=== PATIENT | female | born 1935 | race Caucasian/White ===

== ENCOUNTER 2021-03-06 11:16 | Inpatient (IN) ==
[2021-03-06 12:10] LABS: Basophils # 0.1 K/mcL (0.0-0.2); Basophils % 0.8 %; Eosinophils # 0.2 K/mcL (0.0-0.6); Eosinophils % 2.1 %; Hematocrit 32.4 % (35.3-44.9); Hemoglobin 10.4 g/dL (11.5-15.4); Immature Granulocytes % 0.7 % (0-4); Lymphocytes # 1.2 K/mcL (0.6-4.6); Lymphocytes % 15.4 %; Mean Corpuscular HGB Conc 32.1 g/dL (31.6-35.5); Mean Corpuscular Hemoglobin 29.9 pg (28.0-33.3); Mean Corpuscular Volume 93.1 fL (83.0-100.0); Mean Platelet Volume 9.2 fL (9.4-12.4); Monocytes # 0.5 K/mcL (0.0-1.3); Monocytes % 6.7 %; Neutrophils # 5.7 K/mcL (1.6-8.9); Platelet Count 226 K/mcL (140-400); Red Blood Count 3.48 M/mcL (3.82-4.97); Red Cell Distribution Width 15.5 % (11.5-14.5); Segmented Neutrophils % 74.3 %; White Blood Count 7.6 K/mcL (4.3-11.1)
[2021-03-06 12:28] LABS: Albumin 4.1 g/dL (3.5-5.7); Albumin/Globulin Ratio 1.4 (1.1-2.2); Bilirubin,Total 0.5 mg/dL (0.3-1.0); Calcium 9.5 mg/dL (8.6-10.3); Globulin 2.9 g/dL (2.4-3.5); Potassium 4.5 mEq/L (3.5-5.1)
[2021-03-06 12:41] LABS: Bilirubin,Urine Negative (Negative); Blood,Urine Negative (Negative); Clarity,Urine Clear (Clear); Color,Urine Yellow (Yellow); Glucose,Urine (UA) Normal (Normal); Ketones,Urine Negative (Negative); Leukocyte Esterase,Urine Negative (Negative); Nitrite,Urine Negative (Negative); Protein,Urine Negative (Neg-Trace); Specific Gravity,Urine 1.015 (1.010-1.025); Urobilinogen,Urine Normal (Normal)
[2021-03-06] MEDS ORDERED: Clindamycin 600 MG/50 ML 600 MG/50 ML IV.SOLN IVPB ONE (13:23)
[2021-03-06] MEDS ORDERED: Acetaminophen 325 MG TABLET PO PRN (13:49)
[2021-03-06] MEDS ORDERED: Ondansetron ODT 4 MG TAB.RAPDIS SL PRN (13:49)
[2021-03-06] MEDS ORDERED: Naloxone 0.4 MG/ML INJ IVP PRN (13:49)
[2021-03-06] MEDS ORDERED: D5% in Water 1,000 ML IVC PRN (17:47)
[2021-03-06] MEDS ORDERED: Dextrose Gel 15 GM/37.5 ML TUBE PO PRN ×2 (17:47)
[2021-03-06] MEDS ORDERED: *HR* Dextrose 50 % in Water (Vial) 50 ML VIAL IVP PRN (17:47)
[2021-03-06] MEDS: Morphine Sulfate ER (12 HR) 15 MG TABLET.ER PO PRN (20:45)
[2021-03-06] MEDS: Torsemide 20 MG TABLET PO SCH ×2 (20:45→21:57)
[2021-03-06] MEDS: Magnesium Oxide 400 MG TABLET PO SCH (20:46)
[2021-03-06] MEDS: Insulin LISPRO 300 UNITS/3 ML VIAL SUBQ SCH (20:54)
[2021-03-06] MEDS: Clindamycin 600 MG/50 ML 600 MG/50 ML IV.SOLN IVPB SCH (23:55)
[2021-03-07 06:04] LABS: Basophils # 0.1 K/mcL (0.0-0.2); Basophils % 0.8 %; Eosinophils # 0.1 K/mcL (0.0-0.6); Eosinophils % 1.8 %; Hematocrit 28.6 % (35.3-44.9); Hemoglobin 9.2 g/dL (11.5-15.4); Immature Granulocytes % 0.5 % (0-4); Lymphocytes # 1.5 K/mcL (0.6-4.6); Lymphocytes % 24.3 %; Mean Corpuscular HGB Conc 32.2 g/dL (31.6-35.5); Mean Corpuscular Hemoglobin 30.1 pg (28.0-33.3); Mean Corpuscular Volume 93.5 fL (83.0-100.0); Mean Platelet Volume 9.6 fL (9.4-12.4); Monocytes # 0.5 K/mcL (0.0-1.3); Monocytes % 8.7 %; Neutrophils # 3.9 K/mcL (1.6-8.9); Platelet Count 186 K/mcL (140-400); Red Blood Count 3.06 M/mcL (3.82-4.97); Red Cell Distribution Width 15.4 % (11.5-14.5); Segmented Neutrophils % 63.9 %; White Blood Count 6.1 K/mcL (4.3-11.1)
[2021-03-07 06:35] LABS: Calcium 8.8 mg/dL (8.6-10.3); Potassium 3.8 mEq/L (3.5-5.1)
[2021-03-07] MEDS ORDERED: *HR* Rivaroxaban 10 MG TABLET PO SCH (09:00)
[2021-03-07] MEDS: Insulin LISPRO 300 UNITS/3 ML VIAL SUBQ SCH ×4 (09:02→22:45)
[2021-03-07] MEDS: Clindamycin 600 MG/50 ML 600 MG/50 ML IV.SOLN IVPB SCH ×2 (09:02→16:06)
[2021-03-07] MEDS: GlipiZIDE 5 MG TABLET PO SCH ×2 (09:03→16:06)
[2021-03-07] MEDS: Torsemide 20 MG TABLET PO SCH (09:03)
[2021-03-07] MEDS: Magnesium Oxide 400 MG TABLET PO SCH ×2 (09:03→22:44)
[2021-03-07] MEDS: Loratadine 10 MG TABLET PO SCH (09:03)
[2021-03-07] MEDS: Metoprolol XL (24 HR) Succ 50 MG TAB.ER.24H PO SCH (09:04)
[2021-03-07] MEDS: Spironolactone 25 MG TABLET PO SCH (09:04)
[2021-03-07] MEDS: *HR* Digoxin 0.125 MG TABLET PO SCH (09:04)
[2021-03-07] MEDS: (Mirabegron [Myrbetriq] 50 MG Tab.Er.24h) PO SCH (09:11)
[2021-03-07] MEDS: Morphine Sulfate ER (12 HR) 15 MG TABLET.ER PO PRN (22:44)
[2021-03-08] MEDS: Levalbuterol 1 PUFF INHALER IH PRN ×3 (00:13→22:27)
[2021-03-08] MEDS: Clindamycin 600 MG/50 ML 600 MG/50 ML IV.SOLN IVPB SCH ×3 (00:18→16:01)
[2021-03-08] MEDS: Insulin LISPRO 300 UNITS/3 ML VIAL SUBQ SCH ×4 (08:11→20:12)
[2021-03-08] MEDS: Metoprolol XL (24 HR) Succ 50 MG TAB.ER.24H PO SCH (09:45)
[2021-03-08] MEDS: (Mirabegron [Myrbetriq] 50 MG Tab.Er.24h) PO SCH (09:45)
[2021-03-08] MEDS: Magnesium Oxide 400 MG TABLET PO SCH ×2 (09:45→20:11)
[2021-03-08] MEDS: Loratadine 10 MG TABLET PO SCH (09:45)
[2021-03-08] MEDS: Spironolactone 25 MG TABLET PO SCH (09:45)
[2021-03-08] MEDS: *HR* Rivaroxaban 15 MG TABLET PO SCH (09:45)
[2021-03-08] MEDS: Torsemide 20 MG TABLET PO SCH ×2 (09:45→17:18)
[2021-03-08] MEDS: GlipiZIDE 5 MG TABLET PO SCH ×2 (09:45→16:01)
[2021-03-08 10:51] LABS: Basophils % 0.4 %; Eosinophils # 0.1 K/mcL (0.0-0.6); Eosinophils % 0.8 %; Hematocrit 32.2 % (35.3-44.9); Hemoglobin 10.3 g/dL (11.5-15.4); Immature Granulocytes % 0.6 % (0-4); Lymphocytes # 0.9 K/mcL (0.6-4.6); Lymphocytes % 10.2 %; Mean Corpuscular Hemoglobin 29.9 pg (28.0-33.3); Mean Corpuscular Volume 93.3 fL (83.0-100.0); Mean Platelet Volume 9.6 fL (9.4-12.4); Monocytes # 0.5 K/mcL (0.0-1.3); Platelet Count 238 K/mcL (140-400); Red Blood Count 3.45 M/mcL (3.82-4.97); Red Cell Distribution Width 15.2 % (11.5-14.5); White Blood Count 8.6 K/mcL (4.3-11.1)
[2021-03-08 11:09] LABS: Calcium 9.2 mg/dL (8.6-10.3); Potassium 3.4 mEq/L (3.5-5.1)
[2021-03-08] MEDS: Morphine Sulfate ER (12 HR) 15 MG TABLET.ER PO PRN (20:11)
[2021-03-09] MEDS: Clindamycin 600 MG/50 ML 600 MG/50 ML IV.SOLN IVPB SCH ×4 (00:01→23:37)
[2021-03-09] MEDS: Insulin LISPRO 300 UNITS/3 ML VIAL SUBQ SCH ×4 (08:05→20:59)
[2021-03-09 08:15] LABS: Basophils # 0.1 K/mcL (0.0-0.2); Basophils % 0.6 %; Eosinophils # 0.1 K/mcL (0.0-0.6); Eosinophils % 1.8 %; Hematocrit 31.5 % (35.3-44.9); Hemoglobin 10.2 g/dL (11.5-15.4); Immature Granulocytes % 0.6 % (0-4); Lymphocytes # 1.2 K/mcL (0.6-4.6); Lymphocytes % 15.7 %; Mean Corpuscular HGB Conc 32.4 g/dL (31.6-35.5); Mean Corpuscular Volume 92.6 fL (83.0-100.0); Mean Platelet Volume 9.7 fL (9.4-12.4); Monocytes # 0.5 K/mcL (0.0-1.3); Monocytes % 6.9 %; Neutrophils # 5.8 K/mcL (1.6-8.9); Platelet Count 222 K/mcL (140-400); Red Cell Distribution Width 15.2 % (11.5-14.5); Segmented Neutrophils % 74.4 %; White Blood Count 7.8 K/mcL (4.3-11.1)
[2021-03-09] MEDS: Magnesium Oxide 400 MG TABLET PO SCH ×2 (08:38→20:54)
[2021-03-09] MEDS: *HR* Digoxin 0.125 MG TABLET PO SCH (08:38)
[2021-03-09] MEDS: GlipiZIDE 5 MG TABLET PO SCH ×2 (08:38→17:59)
[2021-03-09] MEDS: Loratadine 10 MG TABLET PO SCH (08:38)
[2021-03-09] MEDS: *HR* Rivaroxaban 15 MG TABLET PO SCH (08:38)
[2021-03-09] MEDS: (Mirabegron [Myrbetriq] 50 MG Tab.Er.24h) PO SCH (08:39)
[2021-03-09] MEDS: Spironolactone 25 MG TABLET PO SCH (08:39)
[2021-03-09] MEDS: Metoprolol XL (24 HR) Succ 50 MG TAB.ER.24H PO SCH (08:39)
[2021-03-09] MEDS: Torsemide 20 MG TABLET PO SCH ×2 (08:41→18:00)
[2021-03-09 08:59] LABS: Calcium 9.1 mg/dL (8.6-10.3); Potassium 3.7 mEq/L (3.5-5.1)
[2021-03-09] MEDS: Morphine Sulfate ER (12 HR) 15 MG TABLET.ER PO PRN ×2 (10:27→23:37)
[2021-03-10] MEDS ORDERED: polyethylene glycoL 3350 17 GM POWD.PACK PO PRN (00:15)
[2021-03-10 07:53] VITALS: BP 104/67; PULSE 79; RESP 18; TEMP 98.3; O2SAT 94
[2021-03-10] MEDS: Insulin LISPRO 300 UNITS/3 ML VIAL SUBQ SCH ×2 (08:06→12:40)
[2021-03-10 08:23] LABS: Basophils % 0.6 %; Eosinophils # 0.2 K/mcL (0.0-0.6); Eosinophils % 2.6 %; Hematocrit 29.9 % (35.3-44.9); Hemoglobin 9.5 g/dL (11.5-15.4); Immature Granulocytes % 0.9 % (0-4); Lymphocytes # 1.2 K/mcL (0.6-4.6); Lymphocytes % 17.5 %; Mean Corpuscular HGB Conc 31.8 g/dL (31.6-35.5); Mean Corpuscular Hemoglobin 29.8 pg (28.0-33.3); Mean Corpuscular Volume 93.7 fL (83.0-100.0); Mean Platelet Volume 9.3 fL (9.4-12.4); Monocytes # 0.5 K/mcL (0.0-1.3); Monocytes % 7.7 %; Neutrophils # 4.7 K/mcL (1.6-8.9); Platelet Count 201 K/mcL (140-400); Red Blood Count 3.19 M/mcL (3.82-4.97); Red Cell Distribution Width 14.9 % (11.5-14.5); Segmented Neutrophils % 70.7 %; White Blood Count 6.6 K/mcL (4.3-11.1)
[2021-03-10] MEDS: Torsemide 20 MG TABLET PO SCH (08:38)
[2021-03-10] MEDS: GlipiZIDE 5 MG TABLET PO SCH (08:38)
[2021-03-10] MEDS: Magnesium Oxide 400 MG TABLET PO SCH (08:38)
[2021-03-10] MEDS: Spironolactone 25 MG TABLET PO SCH (08:39)
[2021-03-10] MEDS: Clindamycin 600 MG/50 ML 600 MG/50 ML IV.SOLN IVPB SCH (08:39)
[2021-03-10] MEDS: *HR* Rivaroxaban 15 MG TABLET PO SCH (08:39)
[2021-03-10] MEDS: Loratadine 10 MG TABLET PO SCH (08:39)
[2021-03-10] MEDS: Metoprolol XL (24 HR) Succ 50 MG TAB.ER.24H PO SCH (08:39)
[2021-03-10] MEDS: (Mirabegron [Myrbetriq] 50 MG Tab.Er.24h) PO SCH (08:40)
[2021-03-10 09:01] LABS: Calcium 8.6 mg/dL (8.6-10.3); Potassium 3.6 mEq/L (3.5-5.1)
== END 2021-03-10 13:40 | disposition other institution (70) | DRG 638 ==
LOC: EMEROOPIK 11:16 → INPPIK 11:16
PROVIDERS: ADMIT Family Medicine; ATTEND Family Medicine

== ENCOUNTER 2021-03-09 08:20 | Inpatient (IN) ==
[2021-03-10] MEDS ORDERED: Morphine Sulfate ER (12 HR) 15 MG TABLET.ER PO PRN (13:03)
[2021-03-10] MEDS ORDERED: Levalbuterol 1 PUFF INHALER IH PRN (13:03)
[2021-03-10] MEDS ORDERED: D5% in Water 1,000 ML IVC PRN (13:08)
[2021-03-10] MEDS ORDERED: Dextrose Gel 15 GM/37.5 ML TUBE PO PRN ×2 (13:08)
[2021-03-10] MEDS ORDERED: *HR* Dextrose 50 % in Water (Vial) 50 ML VIAL IVP PRN (13:08)
[2021-03-10] MEDS ORDERED: Acetaminophen 325 MG TABLET PO PRN (13:11)
[2021-03-10] MEDS ORDERED: Ondansetron ODT 4 MG TAB.RAPDIS SL PRN (13:12)
[2021-03-10] MEDS: *HR* Digoxin 0.125 MG TABLET PO SCH (14:57)
[2021-03-10] MEDS: Torsemide 20 MG TABLET PO SCH (16:41)
[2021-03-10] MEDS: Insulin LISPRO 300 UNITS/3 ML VIAL SUBQ SCH ×2 (16:42→20:44)
[2021-03-10] MEDS: GlipiZIDE 5 MG TABLET PO SCH (20:42)
[2021-03-10] MEDS: Magnesium Oxide 400 MG TABLET PO SCH (20:43)
[2021-03-11 07:28] LABS: Basophils # 0.1 K/mcL (0.0-0.2); Basophils % 0.9 %; Eosinophils # 0.2 K/mcL (0.0-0.6); Eosinophils % 3.4 %; Hematocrit 29.8 % (35.3-44.9); Hemoglobin 9.5 g/dL (11.5-15.4); Immature Granulocytes % 0.7 % (0-4); Lymphocytes # 1.3 K/mcL (0.6-4.6); Lymphocytes % 21.6 %; Mean Corpuscular HGB Conc 31.9 g/dL (31.6-35.5); Mean Corpuscular Hemoglobin 29.6 pg (28.0-33.3); Mean Corpuscular Volume 92.8 fL (83.0-100.0); Mean Platelet Volume 9.6 fL (9.4-12.4); Monocytes # 0.5 K/mcL (0.0-1.3); Monocytes % 9.1 %; Neutrophils # 3.7 K/mcL (1.6-8.9); Platelet Count 205 K/mcL (140-400); Red Blood Count 3.21 M/mcL (3.82-4.97); Red Cell Distribution Width 14.7 % (11.5-14.5); Segmented Neutrophils % 64.3 %; White Blood Count 5.8 K/mcL (4.3-11.1)
[2021-03-11 07:49] LABS: Calcium 8.8 mg/dL (8.6-10.3); Potassium 3.5 mEq/L (3.5-5.1)
[2021-03-11] MEDS ORDERED: *HR* Rivaroxaban 10 MG TABLET PO SCH (09:00)
[2021-03-11] MEDS: Insulin LISPRO 300 UNITS/3 ML VIAL SUBQ SCH ×4 (09:08→21:04)
[2021-03-11] MEDS: Multivit/Ca/Min/Fe/FA 1 TAB TABLET PO SCH (09:09)
[2021-03-11] MEDS: Lactobacillus 1 EACH CAP.SPRINK PO SCH ×2 (09:09→21:02)
[2021-03-11] MEDS: GlipiZIDE 5 MG TABLET PO SCH ×2 (09:09→16:42)
[2021-03-11] MEDS: Loratadine 10 MG TABLET PO SCH (09:09)
[2021-03-11] MEDS: Cholecalciferol (D-3) 1,000 UNIT (25MCG) TABLET PO SCH (09:09)
[2021-03-11] MEDS: Metoprolol XL (24 HR) Succ 50 MG TAB.ER.24H PO SCH (09:10)
[2021-03-11] MEDS: Spironolactone 25 MG TABLET PO SCH (09:10)
[2021-03-11] MEDS: Torsemide 20 MG TABLET PO SCH ×2 (09:10→16:42)
[2021-03-11] MEDS: Magnesium Oxide 400 MG TABLET PO SCH ×2 (09:10→21:03)
[2021-03-11] MEDS: (Mirabegron [Myrbetriq] 50 MG Tab.Er.24h) PO SCH (09:11)
[2021-03-11] MEDS ORDERED: Morphine Sulfate ER (12 HR) 15 MG TABLET.ER PO SCH (14:00)
[2021-03-11] MEDS ORDERED: Morphine Sulfate ER (12 HR) 15 MG TABLET.ER PO ONE (19:00)
[2021-03-12] MEDS: Spironolactone 25 MG TABLET PO SCH (10:01)
[2021-03-12] MEDS: Torsemide 20 MG TABLET PO SCH ×2 (10:02→17:18)
[2021-03-12] MEDS: Loratadine 10 MG TABLET PO SCH (10:02)
[2021-03-12] MEDS: Magnesium Oxide 400 MG TABLET PO SCH ×2 (10:02→21:26)
[2021-03-12] MEDS: Multivit/Ca/Min/Fe/FA 1 TAB TABLET PO SCH (10:02)
[2021-03-12] MEDS: Insulin LISPRO 300 UNITS/3 ML VIAL SUBQ SCH ×4 (10:03→21:26)
[2021-03-12] MEDS: (Mirabegron [Myrbetriq] 50 MG Tab.Er.24h) PO SCH (10:03)
[2021-03-12] MEDS: Metoprolol XL (24 HR) Succ 50 MG TAB.ER.24H PO SCH (10:03)
[2021-03-12] MEDS: *HR* Rivaroxaban 15 MG TABLET PO SCH (10:03)
[2021-03-12] MEDS: Cholecalciferol (D-3) 1,000 UNIT (25MCG) TABLET PO SCH (10:03)
[2021-03-12] MEDS: Morphine Sulfate ER (12 HR) 15 MG TABLET.ER PO SCH ×2 (10:03→21:25)
[2021-03-12] MEDS: Lactobacillus 1 EACH CAP.SPRINK PO SCH ×2 (10:03→21:26)
[2021-03-12] MEDS: GlipiZIDE 5 MG TABLET PO SCH ×2 (10:03→17:18)
[2021-03-12] MEDS: *HR* Digoxin 0.125 MG TABLET PO SCH (15:03)
[2021-03-13] MEDS: Insulin LISPRO 300 UNITS/3 ML VIAL SUBQ SCH ×4 (07:58→21:16)
[2021-03-13] MEDS: Lactobacillus 1 EACH CAP.SPRINK PO SCH ×2 (08:20→21:16)
[2021-03-13] MEDS: Spironolactone 25 MG TABLET PO SCH (08:20)
[2021-03-13] MEDS: Magnesium Oxide 400 MG TABLET PO SCH ×2 (08:20→21:16)
[2021-03-13] MEDS: Multivit/Ca/Min/Fe/FA 1 TAB TABLET PO SCH (08:20)
[2021-03-13] MEDS: Torsemide 20 MG TABLET PO SCH ×2 (08:21→16:47)
[2021-03-13] MEDS: *HR* Rivaroxaban 15 MG TABLET PO SCH (08:21)
[2021-03-13] MEDS: Metoprolol XL (24 HR) Succ 50 MG TAB.ER.24H PO SCH (08:21)
[2021-03-13] MEDS: Morphine Sulfate ER (12 HR) 15 MG TABLET.ER PO SCH ×2 (08:21→21:15)
[2021-03-13] MEDS: Loratadine 10 MG TABLET PO SCH (08:21)
[2021-03-13] MEDS: Cholecalciferol (D-3) 1,000 UNIT (25MCG) TABLET PO SCH (08:21)
[2021-03-13] MEDS: (Mirabegron [Myrbetriq] 50 MG Tab.Er.24h) PO SCH (08:21)
[2021-03-13] MEDS: GlipiZIDE 5 MG TABLET PO SCH ×2 (08:21→16:46)
[2021-03-14] MEDS: Torsemide 20 MG TABLET PO SCH (06:47)
[2021-03-14 07:13] VITALS: RESP 18
[2021-03-14] MEDS: Insulin LISPRO 300 UNITS/3 ML VIAL SUBQ SCH ×4 (08:37→20:34)
[2021-03-14] MEDS: Cholecalciferol (D-3) 1,000 UNIT (25MCG) TABLET PO SCH (08:43)
[2021-03-14] MEDS: Lactobacillus 1 EACH CAP.SPRINK PO SCH ×2 (08:43→20:34)
[2021-03-14] MEDS: Metoprolol XL (24 HR) Succ 50 MG TAB.ER.24H PO SCH (08:43)
[2021-03-14] MEDS: Loratadine 10 MG TABLET PO SCH (08:43)
[2021-03-14] MEDS: *HR* Rivaroxaban 15 MG TABLET PO SCH (08:43)
[2021-03-14] MEDS: Multivit/Ca/Min/Fe/FA 1 TAB TABLET PO SCH (08:44)
[2021-03-14] MEDS: GlipiZIDE 5 MG TABLET PO SCH ×2 (08:44→16:17)
[2021-03-14] MEDS: Spironolactone 25 MG TABLET PO SCH (08:44)
[2021-03-14] MEDS: Morphine Sulfate ER (12 HR) 15 MG TABLET.ER PO SCH ×2 (08:44→20:34)
[2021-03-14] MEDS: Magnesium Oxide 400 MG TABLET PO SCH ×2 (08:44→20:34)
[2021-03-14] MEDS: (Mirabegron [Myrbetriq] 50 MG Tab.Er.24h) PO SCH (08:44)
[2021-03-14] MEDS: *HR* Digoxin 0.125 MG TABLET PO SCH (13:42)
[2021-03-14] MEDS ORDERED: Torsemide 20 MG TABLET PO SCH (14:00)
[2021-03-14 19:28] VITALS: O2SAT 91
[2021-03-15] MEDS: Torsemide 20 MG TABLET PO SCH (06:16)
[2021-03-15 07:31] VITALS: BP 111/55; PULSE 70; TEMP 97.9
[2021-03-15] MEDS: Insulin LISPRO 300 UNITS/3 ML VIAL SUBQ SCH (07:34)
[2021-03-15] MEDS: Spironolactone 25 MG TABLET PO SCH (08:42)
[2021-03-15] MEDS: Multivit/Ca/Min/Fe/FA 1 TAB TABLET PO SCH (08:42)
[2021-03-15] MEDS: Metoprolol XL (24 HR) Succ 50 MG TAB.ER.24H PO SCH (08:43)
[2021-03-15] MEDS: Lactobacillus 1 EACH CAP.SPRINK PO SCH (08:43)
[2021-03-15] MEDS: Cholecalciferol (D-3) 1,000 UNIT (25MCG) TABLET PO SCH (08:43)
[2021-03-15] MEDS: GlipiZIDE 5 MG TABLET PO SCH (08:44)
[2021-03-15] MEDS: Loratadine 10 MG TABLET PO SCH (08:44)
[2021-03-15] MEDS: Magnesium Oxide 400 MG TABLET PO SCH (08:44)
[2021-03-15] MEDS: *HR* Rivaroxaban 15 MG TABLET PO SCH (08:44)
[2021-03-15] MEDS: (Mirabegron [Myrbetriq] 50 MG Tab.Er.24h) PO SCH (08:44)
[2021-03-15] MEDS: Morphine Sulfate ER (12 HR) 15 MG TABLET.ER PO SCH (08:44)
== END 2021-03-15 10:37 | disposition home health service (06) | DRG 638 ==
LOC: INPPIK 03-10 13:53
PROVIDERS: ADMIT Family Medicine; ATTEND Family Medicine

== ENCOUNTER 2021-09-24 15:51 | Inpatient (IN) ==
[2021-09-24 17:14] LABS: Basophils % 0.8 %; Eosinophils # 0.1 K/mcL (0.0-0.6); Eosinophils % 1.9 %; Hematocrit 27.2 % (35.3-44.9); Hemoglobin 8.3 g/dL (11.5-15.4); Immature Granulocytes % 0.6 % (0-4); Lymphocytes # 0.9 K/mcL (0.6-4.6); Lymphocytes % 16.2 %; Mean Corpuscular HGB Conc 30.5 g/dL (31.6-35.5); Mean Corpuscular Volume 98.2 fL (83.0-100.0); Mean Platelet Volume 9.8 fL (9.4-12.4); Monocytes # 0.4 K/mcL (0.0-1.3); Monocytes % 6.8 %; Neutrophils # 3.9 K/mcL (1.6-8.9); Platelet Count 232 K/mcL (140-400); Red Blood Count 2.77 M/mcL (3.82-4.97); Red Cell Distribution Width 14.7 % (11.5-14.5); Segmented Neutrophils % 73.7 %; White Blood Count 5.3 K/mcL (4.3-11.1)
[2021-09-24 17:21] LABS: Prothrombin Time 22.2 Seconds (9.4-12.1)
[2021-09-24 17:24] LABS: Activated Partial Thrombo Time 39.1 Seconds (26.0-36.0)
[2021-09-24 17:33] LABS: Calcium 8.8 mg/dL (8.6-10.3)
[2021-09-24 18:13] LABS: Bilirubin,Urine Negative (Negative); Blood,Urine Trace-intact (Negative); Clarity,Urine Slightly Cloudy (Clear); Color,Urine Yellow (Yellow); Glucose,Urine (UA) Normal (Normal); Ketones,Urine Negative (Negative); Leukocyte Esterase,Urine Small (Negative); Nitrite,Urine Positive (Negative); Protein,Urine Negative (Neg-Trace); Specific Gravity,Urine 1.015 (1.010-1.025); Urobilinogen,Urine Normal (Normal)
[2021-09-24 18:23] LABS: Bacteria,Urine Many per hpf (None-Few); RBC,Urine 0-3 per hpf (0-3); Squamous Epithelial Cell,Urine Few per hpf (None-Few); WBC,Urine 15-30 per hpf (0-3)
[2021-09-24] MEDS ORDERED: Morphine Sulfate ER (12 HR) 15 MG TABLET.ER PO PRN ×2 (19:06→23:17)
[2021-09-24] MEDS ORDERED: Vancomycin 500 MG in 0.9 % Sodium Chloride Mini Bag 100 ML IVPB ONE (20:19)
[2021-09-24] MEDS ORDERED: *HR* OxyCODONE Immed Rel 5 MG TABLET PO PRN (22:40)
[2021-09-24] MEDS ORDERED: *HR* HYDROcodone/Acet 5/325 mg TABLET PO PRN (22:40)
[2021-09-24] MEDS ORDERED: Melatonin 3 MG TABLET PO PRN (22:40)
[2021-09-24] MEDS ORDERED: Naloxone 0.4 MG/ML INJ IVP PRN ×2 (22:40→23:17)
[2021-09-24] MEDS ORDERED: Acetaminophen 325 MG TABLET PO PRN ×2 (22:40→23:17)
[2021-09-24] MEDS ORDERED: Ondansetron 4 MG/2 ML VIAL IVP PRN ×2 (22:40→23:17)
[2021-09-24] MEDS ORDERED: GlipiZIDE 5 MG TABLET PO SCH (23:17)
[2021-09-24] MEDS ORDERED: Levalbuterol 1 PUFF INHALER IH PRN (23:17)
[2021-09-25] MEDS: *HR* Digoxin 0.125 MG TABLET PO SCH (01:07)
[2021-09-25] MEDS: *HR* HYDROcodone/Acet 5/325 mg TABLET PO PRN ×2 (01:08→09:13)
[2021-09-25 05:02] LABS: Basophils % 0.8 %; Eosinophils # 0.1 K/mcL (0.0-0.6); Eosinophils % 1.5 %; Hematocrit 25.9 % (35.3-44.9); Hemoglobin 7.9 g/dL (11.5-15.4); Immature Granulocytes % 0.4 % (0-4); Lymphocytes # 1.1 K/mcL (0.6-4.6); Lymphocytes % 21.6 %; Mean Corpuscular HGB Conc 30.5 g/dL (31.6-35.5); Mean Corpuscular Hemoglobin 30.4 pg (28.0-33.3); Mean Corpuscular Volume 99.6 fL (83.0-100.0); Mean Platelet Volume 10.7 fL (9.4-12.4); Monocytes # 0.5 K/mcL (0.0-1.3); Monocytes % 9.1 %; Neutrophils # 3.5 K/mcL (1.6-8.9); Platelet Count 197 K/mcL (140-400); Red Cell Distribution Width 14.6 % (11.5-14.5); Segmented Neutrophils % 66.6 %; White Blood Count 5.3 K/mcL (4.3-11.1)
[2021-09-25 05:11] LABS: INR 1.3; Prothrombin Time 14.8 Seconds (9.4-12.1)
[2021-09-25] MEDS: *HR* OxyCODONE Immed Rel 5 MG TABLET PO PRN ×2 (05:54→22:02)
[2021-09-25 06:01] LABS: Calcium 8.7 mg/dL (8.6-10.3); Magnesium 2.3 mg/dL (1.6-2.6); Potassium 4.3 mEq/L (3.5-5.1)
[2021-09-25 06:42] LABS: Platelet Estimate Normal (Normal)
[2021-09-25] MEDS ORDERED: Saline Nasal Spray 44 ML BOTTLE NS PRN (08:51)
[2021-09-25] MEDS ORDERED: Metoprolol XL (24 HR) Succ 50 MG TAB.ER.24H PO SCH (09:00)
[2021-09-25] MEDS ORDERED: Furosemide 20 MG TABLET PO SCH ×2 (09:00→21:00)
[2021-09-25] MEDS ORDERED: *HR* Rivaroxaban 10 MG TABLET PO SCH (09:00)
[2021-09-25] MEDS: Multivit/Ca/Min/Fe/FA 1 TAB TABLET PO SCH (09:13)
[2021-09-25] MEDS: Cholecalciferol (D-3) 1,000 UNIT (25MCG) TABLET PO SCH (09:13)
[2021-09-25] MEDS: Magnesium Oxide 400 MG TABLET PO SCH ×2 (09:13→22:01)
[2021-09-25] MEDS: (Mirabegron [Myrbetriq] 50 MG Tab.Er.24h) PO SCH (09:14)
[2021-09-25] MEDS: EPA PO SCH (09:14)
[2021-09-25] MEDS: ZEAXANTHIN PO SCH (09:14)
[2021-09-25] MEDS: LUT PO SCH (09:14)
[2021-09-25] MEDS: Aspirin Enteric Coated 81 MG Tablet PO SCH (09:14)
[2021-09-25] MEDS: DHA PO SCH (09:14)
[2021-09-25] MEDS: OMEGA PO SCH (09:14)
[2021-09-25] MEDS: Loratadine 10 MG TABLET PO SCH (09:14)
[2021-09-25 09:35] LABS: Hematocrit 26.3 % (35.3-44.9)
[2021-09-25] MEDS ORDERED: Perflutren Lipid Microsphere 1.3 ML in 0.9 % Sodium Chloride 8.7 ML IVP PRN (15:07)
[2021-09-25 15:16] LABS: Hematocrit 25.7 % (35.3-44.9); Hemoglobin 7.8 g/dL (11.5-15.4)
[2021-09-25] MEDS ORDERED: Piperacillin/Tazobactam 3.375 GM in 0.9 % Sodium Chloride Mini Bag 100 ML IVPB SCH ×2 (16:00→18:00)
[2021-09-25] MEDS ORDERED: GlipiZIDE 5 MG TABLET PO SCH (17:00)
[2021-09-25] MEDS ORDERED: Cefepime HCl 1,000 MG in Water for inj. (sterile) 10 ML IVP ONE (19:58)
[2021-09-25] MEDS ORDERED: Furosemide 40 MG/4 ML VIAL IVP SCH (21:00)
[2021-09-25] MEDS ORDERED: Furosemide 20 MG/2 ML VIAL IVP SCH (21:00)
[2021-09-25] MEDS: Melatonin 3 MG TABLET PO PRN (22:01)
[2021-09-25] MEDS: Furosemide 20 MG/2 ML VIAL IVP SCH (22:02)
[2021-09-26 07:32] LABS: Basophils % 0.5 %; Eosinophils # 0.1 K/mcL (0.0-0.6); Eosinophils % 1.6 %; Hematocrit 25.4 % (35.3-44.9); Hemoglobin 7.7 g/dL (11.5-15.4); Immature Granulocytes % 0.5 % (0-4); Lymphocytes # 1.2 K/mcL (0.6-4.6); Mean Corpuscular HGB Conc 30.3 g/dL (31.6-35.5); Mean Corpuscular Hemoglobin 30.2 pg (28.0-33.3); Mean Corpuscular Volume 99.6 fL (83.0-100.0); Mean Platelet Volume 9.9 fL (9.4-12.4); Monocytes # 0.5 K/mcL (0.0-1.3); Monocytes % 9.1 %; Platelet Count 203 K/mcL (140-400); Red Blood Count 2.55 M/mcL (3.82-4.97); Red Cell Distribution Width 14.3 % (11.5-14.5); Segmented Neutrophils % 68.3 %; White Blood Count 5.8 K/mcL (4.3-11.1)
[2021-09-26 07:45] LABS: Calcium 8.7 mg/dL (8.6-10.3); Magnesium 2.4 mg/dL (1.6-2.6); Potassium 4.2 mEq/L (3.5-5.1)
[2021-09-26] MEDS ORDERED: Metoprolol XL (24 HR) Succ 50 MG TAB.ER.24H PO SCH (09:00)
[2021-09-26] MEDS ORDERED: Metoprolol XL (24 HR) Succ 25 MG TAB.ER.24H PO SCH (09:00)
[2021-09-26] MEDS: Furosemide 20 MG/2 ML VIAL IVP SCH ×2 (09:15→20:33)
[2021-09-26] MEDS: Magnesium Oxide 400 MG TABLET PO SCH ×2 (09:15→20:33)
[2021-09-26] MEDS: Multivit/Ca/Min/Fe/FA 1 TAB TABLET PO SCH (09:16)
[2021-09-26] MEDS: Aspirin Enteric Coated 81 MG Tablet PO SCH (09:16)
[2021-09-26] MEDS: *HR* HYDROcodone/Acet 5/325 mg TABLET PO PRN (09:16)
[2021-09-26] MEDS: *HR* Rivaroxaban 15 MG TABLET PO SCH (09:16)
[2021-09-26] MEDS: Loratadine 10 MG TABLET PO SCH (09:16)
[2021-09-26] MEDS: Cholecalciferol (D-3) 1,000 UNIT (25MCG) TABLET PO SCH (09:16)
[2021-09-26] MEDS: DHA PO SCH (09:17)
[2021-09-26] MEDS: LUT PO SCH (09:17)
[2021-09-26] MEDS: ZEAXANTHIN PO SCH (09:17)
[2021-09-26] MEDS: (Mirabegron [Myrbetriq] 50 MG Tab.Er.24h) PO SCH (09:17)
[2021-09-26] MEDS: OMEGA PO SCH (09:17)
[2021-09-26] MEDS: EPA PO SCH (09:17)
[2021-09-26] MEDS: Piperacillin/Tazobactam 3.375 GM in 0.9 % Sodium Chloride Mini Bag 100 ML IVPB SCH ×2 (09:22→20:34)
[2021-09-26] MEDS: *HR* OxyCODONE Immed Rel 5 MG TABLET PO PRN (20:31)
[2021-09-26] MEDS: Melatonin 3 MG TABLET PO PRN (20:32)
[2021-09-26] MEDS: *HR* Digoxin 0.125 MG TABLET PO SCH (23:21)
[2021-09-27] MEDS: *HR* HYDROcodone/Acet 5/325 mg TABLET PO PRN ×2 (01:02→15:31)
[2021-09-27] MEDS: *HR* OxyCODONE Immed Rel 5 MG TABLET PO PRN ×2 (04:23→21:01)
[2021-09-27 07:07] LABS: Basophils % 0.3 %; Eosinophils # 0.1 K/mcL (0.0-0.6); Eosinophils % 1.5 %; Hematocrit 25.3 % (35.3-44.9); Hemoglobin 7.6 g/dL (11.5-15.4); Immature Granulocytes % 0.7 % (0-4); Lymphocytes % 16.9 %; Mean Corpuscular Hemoglobin 29.9 pg (28.0-33.3); Mean Corpuscular Volume 99.6 fL (83.0-100.0); Mean Platelet Volume 9.7 fL (9.4-12.4); Monocytes # 0.5 K/mcL (0.0-1.3); Monocytes % 9.3 %; Neutrophils # 4.1 K/mcL (1.6-8.9); Platelet Count 205 K/mcL (140-400); Red Blood Count 2.54 M/mcL (3.82-4.97); Red Cell Distribution Width 14.6 % (11.5-14.5); Segmented Neutrophils % 71.3 %; White Blood Count 5.8 K/mcL (4.3-11.1)
[2021-09-27 07:36] LABS: Calcium 8.7 mg/dL (8.6-10.3); Magnesium 2.2 mg/dL (1.6-2.6); Potassium 3.8 mEq/L (3.5-5.1)
[2021-09-27] MEDS: Aspirin Enteric Coated 81 MG Tablet PO SCH (09:30)
[2021-09-27] MEDS: Loratadine 10 MG TABLET PO SCH (09:30)
[2021-09-27] MEDS: Magnesium Oxide 400 MG TABLET PO SCH ×2 (09:30→21:00)
[2021-09-27] MEDS: Spironolactone 25 MG TABLET PO SCH (09:30)
[2021-09-27] MEDS: Furosemide 20 MG/2 ML VIAL IVP SCH ×2 (09:30→21:01)
[2021-09-27] MEDS: Cholecalciferol (D-3) 1,000 UNIT (25MCG) TABLET PO SCH (09:32)
[2021-09-27] MEDS: Multivit/Ca/Min/Fe/FA 1 TAB TABLET PO SCH (09:32)
[2021-09-27] MEDS: Metoprolol XL (24 HR) Succ 50 MG TAB.ER.24H PO SCH (09:32)
[2021-09-27] MEDS: Piperacillin/Tazobactam 3.375 GM in 0.9 % Sodium Chloride Mini Bag 100 ML IVPB SCH ×2 (09:33→21:16)
[2021-09-27] MEDS: *HR* Rivaroxaban 15 MG TABLET PO SCH (09:33)
[2021-09-27] MEDS: ZEAXANTHIN PO SCH (13:27)
[2021-09-27] MEDS: DHA PO SCH (13:27)
[2021-09-27] MEDS: (Mirabegron [Myrbetriq] 50 MG Tab.Er.24h) PO SCH (13:27)
[2021-09-27] MEDS: OMEGA PO SCH (13:27)
[2021-09-27] MEDS: LUT PO SCH (13:27)
[2021-09-27] MEDS: EPA PO SCH (13:27)
[2021-09-28] MEDS: *HR* OxyCODONE Immed Rel 5 MG TABLET PO PRN (03:19)
[2021-09-28 07:56] LABS: Basophils % 0.6 %; Eosinophils # 0.1 K/mcL (0.0-0.6); Eosinophils % 1.9 %; Hematocrit 25.5 % (35.3-44.9); Hemoglobin 7.6 g/dL (11.5-15.4); Immature Granulocytes % 0.5 % (0-4); Lymphocytes # 0.9 K/mcL (0.6-4.6); Lymphocytes % 14.8 %; Mean Corpuscular HGB Conc 29.8 g/dL (31.6-35.5); Mean Corpuscular Hemoglobin 29.9 pg (28.0-33.3); Mean Corpuscular Volume 100.4 fL (83.0-100.0); Monocytes # 0.5 K/mcL (0.0-1.3); Monocytes % 8.3 %; Neutrophils # 4.6 K/mcL (1.6-8.9); Platelet Count 209 K/mcL (140-400); Red Blood Count 2.54 M/mcL (3.82-4.97); Red Cell Distribution Width 14.3 % (11.5-14.5); Segmented Neutrophils % 73.9 %; White Blood Count 6.2 K/mcL (4.3-11.1)
[2021-09-28] MEDS: Aspirin Enteric Coated 81 MG Tablet PO SCH (07:59)
[2021-09-28] MEDS: *HR* Rivaroxaban 15 MG TABLET PO SCH (08:00)
[2021-09-28] MEDS: Loratadine 10 MG TABLET PO SCH (08:00)
[2021-09-28] MEDS: Multivit/Ca/Min/Fe/FA 1 TAB TABLET PO SCH (08:00)
[2021-09-28] MEDS: Spironolactone 25 MG TABLET PO SCH (08:01)
[2021-09-28] MEDS: Magnesium Oxide 400 MG TABLET PO SCH (08:01)
[2021-09-28] MEDS: Cholecalciferol (D-3) 1,000 UNIT (25MCG) TABLET PO SCH (08:01)
[2021-09-28] MEDS: Metoprolol XL (24 HR) Succ 50 MG TAB.ER.24H PO SCH (08:01)
[2021-09-28] MEDS: LUT PO SCH (08:02)
[2021-09-28] MEDS: EPA PO SCH (08:02)
[2021-09-28] MEDS: DHA PO SCH (08:02)
[2021-09-28] MEDS: (Mirabegron [Myrbetriq] 50 MG Tab.Er.24h) PO SCH (08:02)
[2021-09-28] MEDS: ZEAXANTHIN PO SCH (08:02)
[2021-09-28] MEDS: OMEGA PO SCH (08:02)
[2021-09-28] MEDS: Furosemide 20 MG/2 ML VIAL IVP SCH (08:03)
[2021-09-28 08:13] LABS: Calcium 8.8 mg/dL (8.6-10.3); Potassium 3.7 mEq/L (3.5-5.1)
[2021-09-28 13:48] VITALS: RESP 16
[2021-09-28 14:29] VITALS: BP 105/64; PULSE 101; TEMP 98.6; O2SAT 96
[2021-09-28] MEDS ORDERED: Amoxicillin/Clavulanate 500 MG TABLET PO SCH (17:00)
[2021-09-29] MEDS ORDERED: Torsemide 20 MG TABLET PO SCH (09:00)
== END 2021-09-28 15:39 | disposition home health service (06) ==
LOC: INPPIK 15:51 → EMEROOPIK 15:51 → INPPIK 21:30
PROVIDERS: ADMIT Internal Medicine; ATTEND Internal Medicine

== ENCOUNTER 2021-12-27 09:38 | Inpatient (IN) ==
[2021-12-27 10:01] LABS: Bilirubin,Urine Negative (Negative); Blood,Urine Negative (Negative); Clarity,Urine Clear (Clear); Color,Urine Yellow (Yellow); Glucose,Urine (UA) Normal (Normal); Ketones,Urine Negative (Negative); Leukocyte Esterase,Urine Trace (Negative); Nitrite,Urine Negative (Negative); Protein,Urine Negative (Neg-Trace); Urobilinogen,Urine Normal (Normal)
[2021-12-27 10:11] LABS: Squamous Epithelial Cell,Urine Few per hpf (None-Few); WBC,Urine 0-3 per hpf (0-3)
[2021-12-27 10:17] LABS: Basophils % 0.3 %; Eosinophils # 0.1 K/mcL (0.0-0.6); Hematocrit 24.8 % (35.3-44.9); Hemoglobin 7.4 g/dL (11.5-15.4); Immature Granulocytes % 0.7 % (0-4); Lymphocytes # 0.9 K/mcL (0.6-4.6); Lymphocytes % 13.3 %; Mean Corpuscular HGB Conc 29.8 g/dL (31.6-35.5); Mean Corpuscular Hemoglobin 27.7 pg (28.0-33.3); Mean Corpuscular Volume 92.9 fL (83.0-100.0); Mean Platelet Volume 8.9 fL (9.4-12.4); Monocytes # 0.6 K/mcL (0.0-1.3); Monocytes % 7.9 %; Neutrophils # 5.4 K/mcL (1.6-8.9); Platelet Count 313 K/mcL (140-400); Red Blood Count 2.67 M/mcL (3.82-4.97); Red Cell Distribution Width 14.3 % (11.5-14.5); Segmented Neutrophils % 76.8 %
[2021-12-27 10:26] LABS: INR 1.5; Prothrombin Time 16.8 Seconds (9.4-12.1)
[2021-12-27 10:39] LABS: Albumin 3.6 g/dL (3.5-5.7); Albumin/Globulin Ratio 1.2 (1.1-2.2); Bilirubin,Total 0.3 mg/dL (0.3-1.0); Calcium 9.2 mg/dL (8.6-10.3); Globulin 3.1 g/dL (2.4-3.5); Magnesium 2.7 mg/dL (1.6-2.6); Phosphorous 3.9 mg/dL (2.7-4.5); Potassium 4.5 mEq/L (3.5-5.1); Total Protein 6.7 g/dL (6.4-8.9)
[2021-12-27] MEDS ORDERED: Naloxone 0.4 MG/ML INJ IVP PRN (11:35)
[2021-12-27] MEDS ORDERED: MOM Conc 10 ML UD.LIQ PO PRN (11:35)
[2021-12-27] MEDS ORDERED: Melatonin 3 MG TABLET PO PRN (11:35)
[2021-12-27] MEDS ORDERED: Morphine Sulfate ER (12 HR) 15 MG TABLET.ER PO PRN (11:55)
[2021-12-27] MEDS: 0.9 % Sodium Chloride 1,000 ML IVC SCH ×2 (13:33→22:56)
[2021-12-27] MEDS: Azithromycin 500 MG in 0.9 % Sodium Chloride 250 ML IVPB SCH (13:39)
[2021-12-27] MEDS: *HR* Digoxin 0.125 MG TABLET PO SCH (13:58)
[2021-12-27] MEDS: cefTRIAXone 1,000 MG in Water for inj. (sterile) 10 ML IVP SCH (15:10)
[2021-12-27] MEDS ORDERED: Magnesium Oxide 400 MG TABLET PO SCH (21:00)
[2021-12-27] MEDS ORDERED: Sacubitril/Valsartan 24/26 MG 1 TABLET PO SCH (21:00)
[2021-12-27] MEDS: Morphine Sulfate ER (12 HR) 15 MG TABLET.ER PO SCH (22:57)
[2021-12-28] MEDS: Levalbuterol 1 PUFF INHALER IH PRN ×2 (04:33→18:00)
[2021-12-28] MEDS ORDERED: Capsaicin 0.025% 60 GM TUBE TP PRN (06:09)
[2021-12-28] MEDS: Acetaminophen 325 MG TABLET PO PRN (06:43)
[2021-12-28] MEDS: Magic Mouthwash 10 ML UD Cup PO SCH ×3 (06:43→17:47)
[2021-12-28 07:17] LABS: Hematocrit 21.7 % (35.3-44.9); Hemoglobin 6.4 g/dL (11.5-15.4); Mean Corpuscular HGB Conc 29.5 g/dL (31.6-35.5); Mean Corpuscular Hemoglobin 27.6 pg (28.0-33.3); Mean Corpuscular Volume 93.5 fL (83.0-100.0); Mean Platelet Volume 9.4 fL (9.4-12.4); Platelet Count 275 K/mcL (140-400); Red Blood Count 2.32 M/mcL (3.82-4.97); Red Cell Distribution Width 14.3 % (11.5-14.5); White Blood Count 5.9 K/mcL (4.3-11.1)
[2021-12-28 07:39] LABS: Calcium 8.3 mg/dL (8.6-10.3); Magnesium 2.2 mg/dL (1.6-2.6); Potassium 3.8 mEq/L (3.5-5.1)
[2021-12-28] MEDS: BIOTIN 5 MG PO SCH (09:06)
[2021-12-28] MEDS: (Mirabegron [Myrbetriq] 50 MG Tab.Er.24h) PO SCH (09:06)
[2021-12-28] MEDS: LUT PO SCH (09:07)
[2021-12-28] MEDS: ZEAXANTHIN PO SCH (09:07)
[2021-12-28] MEDS: DHA PO SCH (09:07)
[2021-12-28] MEDS: OMEGA PO SCH (09:07)
[2021-12-28] MEDS: EPA PO SCH (09:07)
[2021-12-28] MEDS: Metoprolol XL (24 HR) Succ 50 MG TAB.ER.24H PO SCH (09:19)
[2021-12-28] MEDS: Morphine Sulfate ER (12 HR) 15 MG TABLET.ER PO SCH ×2 (09:19→20:00)
[2021-12-28] MEDS: Aspirin Enteric Coated 81 MG Tablet PO SCH (09:20)
[2021-12-28] MEDS: Multivit/Ca/Min/Fe/FA 1 TAB TABLET PO SCH (09:20)
[2021-12-28] MEDS: Loratadine 10 MG TABLET PO SCH (09:20)
[2021-12-28] MEDS: *HR* Rivaroxaban 15 MG TABLET PO SCH (09:20)
[2021-12-28] MEDS: Cholecalciferol (D-3) 1,000 UNIT (25MCG) TABLET PO SCH (09:21)
[2021-12-28] MEDS: cefTRIAXone 1,000 MG in Water for inj. (sterile) 10 ML IVP SCH (09:21)
[2021-12-28] MEDS: polyethylene glycoL 3350 17 GM POWD.PACK PO SCH (09:21)
[2021-12-28] MEDS ORDERED: 0.9 % Sodium Chloride 250 ML ONE (10:56)
[2021-12-28] MEDS: Azithromycin 500 MG in 0.9 % Sodium Chloride 250 ML IVPB SCH (14:14)
[2021-12-28 14:53] LABS: Hematocrit 24.2 % (35.3-44.9); Hemoglobin 7.4 g/dL (11.5-15.4)
[2021-12-28] MEDS: 0.9 % Sodium Chloride 1,000 ML IVC SCH (17:47)
[2021-12-28 23:56] LABS: Adenovirus Not Detected (Not Detect); Bordetella Pertussis Not Detected (Not Detect); Chlamydophila pneumoniae Not Detected (Not Detect); Coronavirus 229E Not Detected (Not Detect); Coronavirus HKU1 Not Detected (Not Detect); Coronavirus NL63 Not Detected (Not Detect); Coronavirus OC43 Not Detected (Not Detect); Human Metapneumovirus Not Detected (Not Detect); Human Rhinovirus/Enterovirus Not Detected (Not Detect); Influenza A Subtype 2009 H1 Not Detected (Not Detect); Influenza B Not Detected (Not Detect); Parainfluenza Virus 1 Not Detected (Not Detect); Parainfluenza Virus 2 Not Detected (Not Detect); Parainfluenza Virus 3 Not Detected (Not Detect); Parainfluenza Virus 4 Not Detected (Not Detect); Respiratory Syncytial Virus Not Detected (Not Detect); SARS-CoV-2 Not Detected (Not Detect)
[2021-12-28 23:57] LABS: Mycoplasma pneumoniae Not Detected (Not Detect)
[2021-12-29] MEDS: 0.9 % Sodium Chloride 1,000 ML IVC SCH (06:32)
[2021-12-29 08:35] LABS: Basophils % 0.5 %; Eosinophils # 0.1 K/mcL (0.0-0.6); Eosinophils % 1.5 %; Hematocrit 24.7 % (35.3-44.9); Hemoglobin 7.4 g/dL (11.5-15.4); Immature Granulocytes % 0.8 % (0-4); Lymphocytes # 0.9 K/mcL (0.6-4.6); Lymphocytes % 14.3 %; Mean Corpuscular Volume 93.6 fL (83.0-100.0); Mean Platelet Volume 9.6 fL (9.4-12.4); Monocytes # 0.7 K/mcL (0.0-1.3); Monocytes % 10.7 %; Neutrophils # 4.4 K/mcL (1.6-8.9); Platelet Count 284 K/mcL (140-400); Red Blood Count 2.64 M/mcL (3.82-4.97); Red Cell Distribution Width 15.2 % (11.5-14.5); Segmented Neutrophils % 72.2 %; White Blood Count 6.1 K/mcL (4.3-11.1)
[2021-12-29] MEDS: Multivit/Ca/Min/Fe/FA 1 TAB TABLET PO SCH (08:57)
[2021-12-29] MEDS: Aspirin Enteric Coated 81 MG Tablet PO SCH (08:57)
[2021-12-29] MEDS: Metoprolol XL (24 HR) Succ 50 MG TAB.ER.24H PO SCH (08:58)
[2021-12-29] MEDS: Loratadine 10 MG TABLET PO SCH (08:58)
[2021-12-29] MEDS: Cholecalciferol (D-3) 1,000 UNIT (25MCG) TABLET PO SCH (08:58)
[2021-12-29] MEDS: Morphine Sulfate ER (12 HR) 15 MG TABLET.ER PO SCH ×2 (08:59→20:51)
[2021-12-29] MEDS: *HR* Rivaroxaban 15 MG TABLET PO SCH (08:59)
[2021-12-29] MEDS: BIOTIN 5 MG PO SCH (09:00)
[2021-12-29] MEDS: polyethylene glycoL 3350 17 GM POWD.PACK PO SCH (09:00)
[2021-12-29] MEDS: Magic Mouthwash 10 ML UD Cup PO SCH ×3 (09:00→17:00)
[2021-12-29] MEDS: (Mirabegron [Myrbetriq] 50 MG Tab.Er.24h) PO SCH (09:01)
[2021-12-29] MEDS: EPA PO SCH (09:01)
[2021-12-29] MEDS: OMEGA PO SCH (09:01)
[2021-12-29] MEDS: DHA PO SCH (09:01)
[2021-12-29] MEDS: LUT PO SCH (09:01)
[2021-12-29] MEDS: ZEAXANTHIN PO SCH (09:01)
[2021-12-29] MEDS: cefTRIAXone 1,000 MG in Water for inj. (sterile) 10 ML IVP SCH (09:01)
[2021-12-29] MEDS: Levalbuterol 1 PUFF INHALER IH PRN (09:03)
[2021-12-29 09:04] LABS: Calcium 8.5 mg/dL (8.6-10.3); Potassium 3.7 mEq/L (3.5-5.1)
[2021-12-29] MEDS ORDERED: Furosemide 20 MG/2 ML VIAL IVP ONE (09:22)
[2021-12-29] MEDS: Ipratropium/Albuterol Neb 3 ML IH PRN ×2 (09:30→13:07)
[2021-12-29] MEDS ORDERED: Torsemide 20 MG TABLET PO SCH ×2 (09:30→18:00)
[2021-12-29] MEDS: *HR* Digoxin 0.125 MG TABLET PO SCH (12:53)
[2021-12-29] MEDS: Azithromycin 500 MG in 0.9 % Sodium Chloride 250 ML IVPB SCH (12:54)
[2021-12-29] MEDS ORDERED: methylPREDNISolone 125 MG/2 ML VIAL IVP ONE (13:37)
[2021-12-29] MEDS ORDERED: Furosemide 40 MG/4 ML VIAL IVP ONE (13:59)
[2021-12-29] MEDS ORDERED: Furosemide 40 MG/4 ML VIAL ONE (14:02)
[2021-12-29] MEDS: Ondansetron 4 MG/2 ML VIAL IVP PRN (14:07)
[2021-12-29] MEDS: Levalbuterol 1 PUFF INHALER IH SCH ×2 (17:13→22:32)
[2021-12-30 07:34] LABS: Basophils % 0.2 %; Hematocrit 24.2 % (35.3-44.9); Hemoglobin 7.2 g/dL (11.5-15.4); Immature Granulocytes % 0.6 % (0-4); Lymphocytes # 0.5 K/mcL (0.6-4.6); Lymphocytes % 11.2 %; Mean Corpuscular HGB Conc 29.8 g/dL (31.6-35.5); Mean Corpuscular Hemoglobin 27.9 pg (28.0-33.3); Mean Corpuscular Volume 93.8 fL (83.0-100.0); Mean Platelet Volume 9.5 fL (9.4-12.4); Monocytes # 0.4 K/mcL (0.0-1.3); Monocytes % 7.8 %; Neutrophils # 3.8 K/mcL (1.6-8.9); Platelet Count 274 K/mcL (140-400); Red Blood Count 2.58 M/mcL (3.82-4.97); Red Cell Distribution Width 15.4 % (11.5-14.5); Segmented Neutrophils % 80.2 %; White Blood Count 4.7 K/mcL (4.3-11.1)
[2021-12-30] MEDS: Levalbuterol 1 PUFF INHALER IH SCH ×3 (07:35→22:08)
[2021-12-30] MEDS: Loratadine 10 MG TABLET PO SCH (08:26)
[2021-12-30] MEDS: Multivit/Ca/Min/Fe/FA 1 TAB TABLET PO SCH (08:26)
[2021-12-30] MEDS: Metoprolol XL (24 HR) Succ 50 MG TAB.ER.24H PO SCH (08:26)
[2021-12-30] MEDS: Cholecalciferol (D-3) 1,000 UNIT (25MCG) TABLET PO SCH (08:26)
[2021-12-30] MEDS: Aspirin Enteric Coated 81 MG Tablet PO SCH (08:26)
[2021-12-30] MEDS: Morphine Sulfate ER (12 HR) 15 MG TABLET.ER PO SCH ×2 (08:27→21:47)
[2021-12-30] MEDS: Magic Mouthwash 10 ML UD Cup PO SCH ×3 (08:27→16:28)
[2021-12-30] MEDS: cefTRIAXone 1,000 MG in Water for inj. (sterile) 10 ML IVP SCH (08:27)
[2021-12-30] MEDS: *HR* Rivaroxaban 15 MG TABLET PO SCH (08:27)
[2021-12-30] MEDS: polyethylene glycoL 3350 17 GM POWD.PACK PO SCH (08:27)
[2021-12-30] MEDS: DHA PO SCH (08:28)
[2021-12-30] MEDS: ZEAXANTHIN PO SCH (08:28)
[2021-12-30] MEDS: EPA PO SCH (08:28)
[2021-12-30] MEDS: (Mirabegron [Myrbetriq] 50 MG Tab.Er.24h) PO SCH (08:28)
[2021-12-30] MEDS: LUT PO SCH (08:28)
[2021-12-30] MEDS: OMEGA PO SCH (08:28)
[2021-12-30] MEDS: BIOTIN 5 MG PO SCH (08:28)
[2021-12-30] MEDS: Sacubitril/Valsartan 24/26 MG 1 TABLET PO SCH ×2 (08:30→21:47)
[2021-12-30 08:59] LABS: Calcium 9.2 mg/dL (8.6-10.3); Potassium 4.5 mEq/L (3.5-5.1)
[2021-12-30] MEDS ORDERED: Torsemide 20 MG TABLET PO SCH ×2 (09:00→18:00)
[2021-12-30] MEDS ORDERED: 0.9 % Sodium Chloride 250 ML IVC SCH (11:30)
[2021-12-30] MEDS ORDERED: Sennosides/Docusate Sodium TABLET PO SCH (11:45)
[2021-12-30] MEDS ORDERED: MethylPREDNISolone 40 MG/ML VIAL IVP SCH (12:00)
[2021-12-30] MEDS ORDERED: 0.9 % Sodium Chloride 250 ML ONE (14:09)
[2021-12-30] MEDS ORDERED: Furosemide 20 MG/2 ML VIAL IVP ONE ×2 (17:37→18:42)
[2021-12-30] MEDS: Ipratropium/Albuterol Neb 3 ML IH PRN (17:40)
[2021-12-30] MEDS: Ondansetron 4 MG/2 ML VIAL IVP PRN (17:49)
[2021-12-30] MEDS ORDERED: Sennosides/Docusate Sodium TABLET PO PRN (19:45)
[2021-12-30] MEDS ORDERED: Perflutren Lipid Microsphere 1.3 ML in 0.9 % Sodium Chloride 8.7 ML IVP PRN (20:36)
[2021-12-30] MEDS: Budesonide/Formoterol 160/4.5 1 PUFF INH IH SCH (22:08)
[2021-12-31] MEDS ORDERED: MethylPREDNISolone 40 MG/ML VIAL IVP SCH
[2021-12-31 06:08] LABS: Basophils % 0.5 %; Eosinophils # 0.1 K/mcL (0.0-0.6); Eosinophils % 0.8 %; Hematocrit 23.2 % (35.3-44.9); Immature Granulocytes % 0.5 % (0-4); Lymphocytes % 15.2 %; Mean Corpuscular HGB Conc 30.2 g/dL (31.6-35.5); Mean Corpuscular Hemoglobin 28.1 pg (28.0-33.3); Mean Corpuscular Volume 93.2 fL (83.0-100.0); Mean Platelet Volume 9.1 fL (9.4-12.4); Monocytes # 0.5 K/mcL (0.0-1.3); Monocytes % 7.1 %; Neutrophils # 5.1 K/mcL (1.6-8.9); Platelet Count 249 K/mcL (140-400); Red Blood Count 2.49 M/mcL (3.82-4.97); Red Cell Distribution Width 15.8 % (11.5-14.5); Segmented Neutrophils % 75.9 %; White Blood Count 6.7 K/mcL (4.3-11.1)
[2021-12-31 07:23] LABS: Potassium 3.9 mEq/L (3.5-5.1)
[2021-12-31] MEDS: Budesonide/Formoterol 160/4.5 1 PUFF INH IH SCH ×2 (07:55→21:55)
[2021-12-31] MEDS: Levalbuterol 1 PUFF INHALER IH SCH ×3 (07:56→21:54)
[2021-12-31] MEDS: Furosemide 40 MG/4 ML VIAL IVP SCH ×2 (10:36→17:07)
[2021-12-31] MEDS: Morphine Sulfate ER (12 HR) 15 MG TABLET.ER PO SCH ×2 (10:40→21:22)
[2021-12-31] MEDS: Multivit/Ca/Min/Fe/FA 1 TAB TABLET PO SCH (10:40)
[2021-12-31] MEDS: *HR* Rivaroxaban 15 MG TABLET PO SCH (10:40)
[2021-12-31] MEDS: Aspirin Enteric Coated 81 MG Tablet PO SCH (10:40)
[2021-12-31] MEDS: Magic Mouthwash 10 ML UD Cup PO SCH ×3 (10:40→17:06)
[2021-12-31] MEDS: Azithromycin 250 MG TABLET PO SCH (10:40)
[2021-12-31] MEDS: Loratadine 10 MG TABLET PO SCH (10:40)
[2021-12-31] MEDS: cefTRIAXone 1,000 MG in Water for inj. (sterile) 10 ML IVP SCH (10:41)
[2021-12-31] MEDS: polyethylene glycoL 3350 17 GM POWD.PACK PO SCH (10:41)
[2021-12-31] MEDS: Spironolactone 25 MG TABLET PO SCH (10:41)
[2021-12-31] MEDS: Metoprolol XL (24 HR) Succ 50 MG TAB.ER.24H PO SCH (10:41)
[2021-12-31] MEDS: Sacubitril/Valsartan 24/26 MG 1 TABLET PO SCH ×2 (10:41→21:22)
[2021-12-31] MEDS: Cholecalciferol (D-3) 1,000 UNIT (25MCG) TABLET PO SCH (10:41)
[2021-12-31] MEDS: LUT PO SCH (10:44)
[2021-12-31] MEDS: BIOTIN 5 MG PO SCH (10:44)
[2021-12-31] MEDS: DHA PO SCH (10:44)
[2021-12-31] MEDS: ZEAXANTHIN PO SCH (10:44)
[2021-12-31] MEDS: EPA PO SCH (10:44)
[2021-12-31] MEDS: (Mirabegron [Myrbetriq] 50 MG Tab.Er.24h) PO SCH (10:44)
[2021-12-31] MEDS: OMEGA PO SCH (10:44)
[2021-12-31] MEDS: *HR* Digoxin 0.125 MG TABLET PO SCH (12:36)
[2021-12-31] MEDS ORDERED: Torsemide 20 MG TABLET PO SCH (18:00)
[2021-12-31 18:07] LABS: Hematocrit 26.4 % (35.3-44.9)
[2022-01-01 07:35] LABS: Basophils % 0.5 %; Eosinophils # 0.2 K/mcL (0.0-0.6); Eosinophils % 3.8 %; Hematocrit 24.7 % (35.3-44.9); Hemoglobin 7.3 g/dL (11.5-15.4); Immature Granulocytes % 0.5 % (0-4); Lymphocytes # 1.2 K/mcL (0.6-4.6); Lymphocytes % 19.2 %; Mean Corpuscular HGB Conc 29.6 g/dL (31.6-35.5); Mean Corpuscular Hemoglobin 27.8 pg (28.0-33.3); Mean Corpuscular Volume 93.9 fL (83.0-100.0); Mean Platelet Volume 9.6 fL (9.4-12.4); Monocytes # 0.5 K/mcL (0.0-1.3); Monocytes % 7.7 %; Neutrophils # 4.3 K/mcL (1.6-8.9); Platelet Count 255 K/mcL (140-400); Red Blood Count 2.63 M/mcL (3.82-4.97); Red Cell Distribution Width 15.7 % (11.5-14.5); Segmented Neutrophils % 68.3 %; White Blood Count 6.4 K/mcL (4.3-11.1)
[2022-01-01 07:55] LABS: Calcium 9.1 mg/dL (8.6-10.3); Magnesium 2.2 mg/dL (1.6-2.6)
[2022-01-01] MEDS: Budesonide/Formoterol 160/4.5 1 PUFF INH IH SCH ×2 (08:11→21:41)
[2022-01-01] MEDS: Levalbuterol 1 PUFF INHALER IH SCH ×3 (08:11→21:40)
[2022-01-01] MEDS: cefTRIAXone 1,000 MG in Water for inj. (sterile) 10 ML IVP SCH (08:52)
[2022-01-01] MEDS: Furosemide 40 MG/4 ML VIAL IVP SCH ×2 (08:53→23:18)
[2022-01-01] MEDS: Metoprolol XL (24 HR) Succ 50 MG TAB.ER.24H PO SCH (08:54)
[2022-01-01] MEDS: Loratadine 10 MG TABLET PO SCH (08:54)
[2022-01-01] MEDS: Morphine Sulfate ER (12 HR) 15 MG TABLET.ER PO SCH ×2 (08:54→21:58)
[2022-01-01] MEDS: Sacubitril/Valsartan 24/26 MG 1 TABLET PO SCH ×2 (08:54→21:58)
[2022-01-01] MEDS: Azithromycin 250 MG TABLET PO SCH (08:55)
[2022-01-01] MEDS: *HR* Rivaroxaban 15 MG TABLET PO SCH (08:55)
[2022-01-01] MEDS: Cholecalciferol (D-3) 1,000 UNIT (25MCG) TABLET PO SCH (08:55)
[2022-01-01] MEDS: Aspirin Enteric Coated 81 MG Tablet PO SCH (08:55)
[2022-01-01] MEDS: Spironolactone 25 MG TABLET PO SCH (08:55)
[2022-01-01] MEDS: Multivit/Ca/Min/Fe/FA 1 TAB TABLET PO SCH (08:55)
[2022-01-01] MEDS: BIOTIN 5 MG PO SCH (10:12)
[2022-01-01] MEDS: (Mirabegron [Myrbetriq] 50 MG Tab.Er.24h) PO SCH (10:12)
[2022-01-01] MEDS: ZEAXANTHIN PO SCH (10:13)
[2022-01-01] MEDS: EPA PO SCH (10:13)
[2022-01-01] MEDS: LUT PO SCH (10:13)
[2022-01-01] MEDS: polyethylene glycoL 3350 17 GM POWD.PACK PO SCH (10:13)
[2022-01-01] MEDS: OMEGA PO SCH (10:13)
[2022-01-01] MEDS: Magic Mouthwash 10 ML UD Cup PO SCH ×3 (10:13→17:22)
[2022-01-01] MEDS: DHA PO SCH (10:13)
[2022-01-01] MEDS ORDERED: Furosemide 20 MG/2 ML VIAL IVP SCH (17:00)
[2022-01-01 17:12] LABS: Hematocrit 28.6 % (35.3-44.9); Hemoglobin 8.7 g/dL (11.5-15.4)
[2022-01-01] MEDS: Cefdinir 300 MG CAPSULE PO SCH (21:58)
[2022-01-02] MEDS: Budesonide/Formoterol 160/4.5 1 PUFF INH IH SCH ×2 (07:38→22:29)
[2022-01-02] MEDS: Levalbuterol 1 PUFF INHALER IH SCH ×3 (07:39→22:28)
[2022-01-02 07:58] LABS: White Blood Count 6.7 K/mcL (4.3-11.1)
[2022-01-02 07:59] LABS: Basophils % 0.6 %; Eosinophils # 0.2 K/mcL (0.0-0.6); Eosinophils % 3.2 %; Hematocrit 25.4 % (35.3-44.9); Hemoglobin 7.6 g/dL (11.5-15.4); Immature Granulocytes % 0.5 % (0-4); Lymphocytes # 1.2 K/mcL (0.6-4.6); Lymphocytes % 17.3 %; Mean Corpuscular HGB Conc 29.9 g/dL (31.6-35.5); Mean Corpuscular Hemoglobin 27.7 pg (28.0-33.3); Mean Corpuscular Volume 92.7 fL (83.0-100.0); Mean Platelet Volume 9.8 fL (9.4-12.4); Monocytes # 0.5 K/mcL (0.0-1.3); Monocytes % 7.5 %; Neutrophils # 4.7 K/mcL (1.6-8.9); Platelet Count 271 K/mcL (140-400); Red Blood Count 2.74 M/mcL (3.82-4.97); Red Cell Distribution Width 15.2 % (11.5-14.5); Segmented Neutrophils % 70.9 %
[2022-01-02 08:26] LABS: Calcium 9.2 mg/dL (8.6-10.3); Magnesium 2.1 mg/dL (1.6-2.6); Potassium 4.2 mEq/L (3.5-5.1)
[2022-01-02] MEDS: Furosemide 40 MG/4 ML VIAL IVP SCH (09:14)
[2022-01-02] MEDS: Aspirin Enteric Coated 81 MG Tablet PO SCH (09:18)
[2022-01-02] MEDS: polyethylene glycoL 3350 17 GM POWD.PACK PO SCH (09:18)
[2022-01-02] MEDS: Morphine Sulfate ER (12 HR) 15 MG TABLET.ER PO SCH ×2 (09:18→20:44)
[2022-01-02] MEDS: Metoprolol XL (24 HR) Succ 50 MG TAB.ER.24H PO SCH (09:18)
[2022-01-02] MEDS: Spironolactone 25 MG TABLET PO SCH (09:18)
[2022-01-02] MEDS: Multivit/Ca/Min/Fe/FA 1 TAB TABLET PO SCH (09:18)
[2022-01-02] MEDS: Cefdinir 300 MG CAPSULE PO SCH ×2 (09:18→20:44)
[2022-01-02] MEDS: Sacubitril/Valsartan 24/26 MG 1 TABLET PO SCH ×2 (09:18→20:44)
[2022-01-02] MEDS: DHA PO SCH (09:19)
[2022-01-02] MEDS: LUT PO SCH (09:19)
[2022-01-02] MEDS: *HR* Rivaroxaban 15 MG TABLET PO SCH (09:19)
[2022-01-02] MEDS: Cholecalciferol (D-3) 1,000 UNIT (25MCG) TABLET PO SCH (09:19)
[2022-01-02] MEDS: Magic Mouthwash 10 ML UD Cup PO SCH ×3 (09:19→16:06)
[2022-01-02] MEDS: OMEGA PO SCH (09:19)
[2022-01-02] MEDS: ZEAXANTHIN PO SCH (09:19)
[2022-01-02] MEDS: Loratadine 10 MG TABLET PO SCH (09:19)
[2022-01-02] MEDS: EPA PO SCH (09:19)
[2022-01-02] MEDS: (Mirabegron [Myrbetriq] 50 MG Tab.Er.24h) PO SCH (09:19)
[2022-01-02] MEDS: BIOTIN 5 MG PO SCH (09:19)
[2022-01-02] MEDS: *HR* Digoxin 0.125 MG TABLET PO SCH (12:03)
[2022-01-02] MEDS: Acetaminophen 325 MG TABLET PO PRN (16:05)
[2022-01-02] MEDS: Torsemide 20 MG TABLET PO SCH (16:07)
[2022-01-03] MEDS: Magic Mouthwash 10 ML UD Cup PO SCH ×3 (06:06→11:48)
[2022-01-03 06:46] LABS: Basophils % 0.5 %; Eosinophils # 0.2 K/mcL (0.0-0.6); Eosinophils % 3.1 %; Hematocrit 25.8 % (35.3-44.9); Hemoglobin 7.7 g/dL (11.5-15.4); Immature Granulocytes % 0.7 % (0-4); Lymphocytes # 1.1 K/mcL (0.6-4.6); Lymphocytes % 18.8 %; Mean Corpuscular HGB Conc 29.8 g/dL (31.6-35.5); Mean Corpuscular Hemoglobin 27.5 pg (28.0-33.3); Mean Corpuscular Volume 92.1 fL (83.0-100.0); Mean Platelet Volume 9.7 fL (9.4-12.4); Monocytes # 0.4 K/mcL (0.0-1.3); Monocytes % 6.4 %; Neutrophils # 4.1 K/mcL (1.6-8.9); Platelet Count 274 K/mcL (140-400); Red Cell Distribution Width 14.8 % (11.5-14.5); Segmented Neutrophils % 70.5 %; White Blood Count 5.8 K/mcL (4.3-11.1)
[2022-01-03 07:09] LABS: Calcium 9.3 mg/dL (8.6-10.3); Potassium 4.6 mEq/L (3.5-5.1)
[2022-01-03] MEDS: Budesonide/Formoterol 160/4.5 1 PUFF INH IH SCH (08:04)
[2022-01-03] MEDS: Levalbuterol 1 PUFF INHALER IH SCH ×2 (08:04→14:55)
[2022-01-03] MEDS: Multivit/Ca/Min/Fe/FA 1 TAB TABLET PO SCH (09:03)
[2022-01-03] MEDS: Sacubitril/Valsartan 24/26 MG 1 TABLET PO SCH (09:04)
[2022-01-03] MEDS: *HR* Rivaroxaban 15 MG TABLET PO SCH (09:04)
[2022-01-03] MEDS: Cholecalciferol (D-3) 1,000 UNIT (25MCG) TABLET PO SCH (09:04)
[2022-01-03] MEDS: Morphine Sulfate ER (12 HR) 15 MG TABLET.ER PO SCH (09:04)
[2022-01-03] MEDS: Loratadine 10 MG TABLET PO SCH (09:04)
[2022-01-03] MEDS: Aspirin Enteric Coated 81 MG Tablet PO SCH (09:05)
[2022-01-03] MEDS: Cefdinir 300 MG CAPSULE PO SCH (09:05)
[2022-01-03] MEDS: polyethylene glycoL 3350 17 GM POWD.PACK PO SCH (09:07)
[2022-01-03] MEDS: ZEAXANTHIN PO SCH (09:08)
[2022-01-03] MEDS: (Mirabegron [Myrbetriq] 50 MG Tab.Er.24h) PO SCH (09:08)
[2022-01-03] MEDS: EPA PO SCH (09:08)
[2022-01-03] MEDS: DHA PO SCH (09:08)
[2022-01-03] MEDS: BIOTIN 5 MG PO SCH (09:08)
[2022-01-03] MEDS: LUT PO SCH (09:08)
[2022-01-03] MEDS: OMEGA PO SCH (09:08)
[2022-01-03] MEDS: Torsemide 20 MG TABLET PO SCH (10:52)
[2022-01-03] MEDS: Metoprolol XL (24 HR) Succ 50 MG TAB.ER.24H PO SCH (10:53)
[2022-01-03] MEDS: Spironolactone 25 MG TABLET PO SCH (10:53)
[2022-01-03 14:40] VITALS: BP 110/67; PULSE 95; TEMP 98.5
[2022-01-03 14:57] VITALS: RESP 18; O2SAT 99
== END 2022-01-03 14:53 | DRG 193 ==
LOC: INPPIK 09:38 → EMEROOPIK 09:38 → INPPIK 12:00
PROVIDERS: ADMIT Family Medicine; ATTEND Family Medicine

== ENCOUNTER 2022-01-03 11:23 | Inpatient (IN) ==
[2022-01-03] MEDS ORDERED: Levalbuterol 1 PUFF INHALER IH PRN (16:52)
[2022-01-03] MEDS: Torsemide 20 MG TABLET PO SCH (17:31)
[2022-01-03] MEDS: Magnesium Oxide 400 MG TABLET PO SCH (20:16)
[2022-01-03] MEDS: Sacubitril/Valsartan 24/26 MG 1 TABLET PO SCH (20:16)
[2022-01-03] MEDS: GlipiZIDE 5 MG TABLET PO SCH (20:16)
[2022-01-03] MEDS: Morphine Sulfate ER (12 HR) 15 MG TABLET.ER PO PRN (20:24)
[2022-01-03] MEDS ORDERED: Levalbuterol Neb 1.25 MG/3 ML IH SCH (22:00)
[2022-01-04 07:42] LABS: Basophils % 0.5 %; Eosinophils # 0.2 K/mcL (0.0-0.6); Hematocrit 24.7 % (35.3-44.9); Hemoglobin 7.5 g/dL (11.5-15.4); Immature Granulocytes % 0.6 % (0-4); Lymphocytes # 1.1 K/mcL (0.6-4.6); Lymphocytes % 17.7 %; Mean Corpuscular HGB Conc 30.4 g/dL (31.6-35.5); Mean Corpuscular Hemoglobin 27.9 pg (28.0-33.3); Mean Corpuscular Volume 91.8 fL (83.0-100.0); Mean Platelet Volume 9.6 fL (9.4-12.4); Monocytes # 0.5 K/mcL (0.0-1.3); Monocytes % 7.1 %; Neutrophils # 4.5 K/mcL (1.6-8.9); Platelet Count 272 K/mcL (140-400); Red Blood Count 2.69 M/mcL (3.82-4.97); Red Cell Distribution Width 14.7 % (11.5-14.5); Segmented Neutrophils % 71.1 %; White Blood Count 6.3 K/mcL (4.3-11.1)
[2022-01-04 08:00] LABS: Potassium 4.3 mEq/L (3.5-5.1)
[2022-01-04] MEDS: Vitamin B Complex/Vit C/Vit E 1 EACH TABLET PO SCH (08:30)
[2022-01-04] MEDS: Spironolactone 25 MG TABLET PO SCH (08:30)
[2022-01-04] MEDS: Aspirin Enteric Coated 81 MG Tablet PO SCH (08:30)
[2022-01-04] MEDS: Morphine Sulfate ER (12 HR) 15 MG TABLET.ER PO PRN ×2 (08:30→21:58)
[2022-01-04] MEDS: Metoprolol XL (24 HR) Succ 50 MG TAB.ER.24H PO SCH (08:30)
[2022-01-04] MEDS: GlipiZIDE 5 MG TABLET PO SCH ×2 (08:31→20:11)
[2022-01-04] MEDS: Multivit/Ca/Min/Fe/FA 1 TAB TABLET PO SCH (08:31)
[2022-01-04] MEDS: Loratadine 10 MG TABLET PO SCH (08:31)
[2022-01-04] MEDS: Sacubitril/Valsartan 24/26 MG 1 TABLET PO SCH ×2 (08:31→20:11)
[2022-01-04] MEDS: Cholecalciferol (D-3) 1,000 UNIT (25MCG) TABLET PO SCH (08:31)
[2022-01-04] MEDS: Torsemide 20 MG TABLET PO SCH ×2 (08:31→16:28)
[2022-01-04] MEDS: Magnesium Oxide 400 MG TABLET PO SCH ×2 (08:31→20:11)
[2022-01-04] MEDS: Mirabegron [Myrbetriq] 50 MG Tab.Er.24h PO SCH (08:31)
[2022-01-04] MEDS ORDERED: BIOTIN 5 MG PO SCH (09:00)
[2022-01-04] MEDS: *HR* Digoxin 0.125 MG TABLET PO SCH (11:47)
[2022-01-04] MEDS: DICLOFENAC SOD TP SCH ×2 (11:47→20:18)
[2022-01-04] MEDS ORDERED: *HR* Rivaroxaban 10 MG TABLET PO SCH (17:00)
[2022-01-05 07:32] LABS: Basophils % 0.6 %; Eosinophils # 0.2 K/mcL (0.0-0.6); Hematocrit 25.4 % (35.3-44.9); Hemoglobin 7.6 g/dL (11.5-15.4); Immature Granulocytes % 0.8 % (0-4); Lymphocytes # 1.2 K/mcL (0.6-4.6); Lymphocytes % 17.9 %; Mean Corpuscular HGB Conc 29.9 g/dL (31.6-35.5); Mean Corpuscular Hemoglobin 27.5 pg (28.0-33.3); Mean Platelet Volume 9.5 fL (9.4-12.4); Monocytes # 0.5 K/mcL (0.0-1.3); Monocytes % 7.4 %; Neutrophils # 4.6 K/mcL (1.6-8.9); Platelet Count 273 K/mcL (140-400); Red Blood Count 2.76 M/mcL (3.82-4.97); Red Cell Distribution Width 14.6 % (11.5-14.5); Segmented Neutrophils % 70.3 %; White Blood Count 6.6 K/mcL (4.3-11.1)
[2022-01-05 08:11] LABS: Calcium 9.1 mg/dL (8.6-10.3); Potassium 4.4 mEq/L (3.5-5.1)
[2022-01-05] MEDS: Metoprolol XL (24 HR) Succ 50 MG TAB.ER.24H PO SCH (09:28)
[2022-01-05] MEDS: Magnesium Oxide 400 MG TABLET PO SCH ×2 (09:28→19:52)
[2022-01-05] MEDS: Multivit/Ca/Min/Fe/FA 1 TAB TABLET PO SCH (09:28)
[2022-01-05] MEDS: Aspirin Enteric Coated 81 MG Tablet PO SCH (09:28)
[2022-01-05] MEDS: Cholecalciferol (D-3) 1,000 UNIT (25MCG) TABLET PO SCH (09:29)
[2022-01-05] MEDS: Torsemide 20 MG TABLET PO SCH ×2 (09:29→17:03)
[2022-01-05] MEDS: Spironolactone 25 MG TABLET PO SCH (09:29)
[2022-01-05] MEDS: GlipiZIDE 5 MG TABLET PO SCH ×2 (09:30→19:52)
[2022-01-05] MEDS: Loratadine 10 MG TABLET PO SCH (09:30)
[2022-01-05] MEDS: Vitamin B Complex/Vit C/Vit E 1 EACH TABLET PO SCH (09:30)
[2022-01-05] MEDS: Sacubitril/Valsartan 24/26 MG 1 TABLET PO SCH ×2 (09:30→19:52)
[2022-01-05] MEDS: Morphine Sulfate ER (12 HR) 15 MG TABLET.ER PO PRN (09:41)
[2022-01-05] MEDS: DICLOFENAC SOD TP SCH ×2 (09:41→19:52)
[2022-01-05] MEDS: Mirabegron [Myrbetriq] 50 MG Tab.Er.24h PO SCH (09:41)
[2022-01-05] MEDS: *HR* Rivaroxaban 15 MG TABLET PO SCH (17:02)
[2022-01-06] MEDS: GlipiZIDE 5 MG TABLET PO SCH ×2 (11:06→20:07)
[2022-01-06] MEDS: Multivit/Ca/Min/Fe/FA 1 TAB TABLET PO SCH (11:06)
[2022-01-06] MEDS: Magnesium Oxide 400 MG TABLET PO SCH ×2 (11:07→20:07)
[2022-01-06] MEDS: Aspirin Enteric Coated 81 MG Tablet PO SCH (11:07)
[2022-01-06] MEDS: *HR* Digoxin 0.125 MG TABLET PO SCH (11:07)
[2022-01-06] MEDS: Morphine Sulfate ER (12 HR) 15 MG TABLET.ER PO PRN (11:07)
[2022-01-06] MEDS: Metoprolol XL (24 HR) Succ 50 MG TAB.ER.24H PO SCH (11:07)
[2022-01-06] MEDS: Torsemide 20 MG TABLET PO SCH ×2 (11:07→17:26)
[2022-01-06] MEDS: Loratadine 10 MG TABLET PO SCH (11:07)
[2022-01-06] MEDS: Vitamin B Complex/Vit C/Vit E 1 EACH TABLET PO SCH (11:07)
[2022-01-06] MEDS: Spironolactone 25 MG TABLET PO SCH (11:07)
[2022-01-06] MEDS: Sacubitril/Valsartan 24/26 MG 1 TABLET PO SCH ×2 (11:07→20:07)
[2022-01-06] MEDS: Cholecalciferol (D-3) 1,000 UNIT (25MCG) TABLET PO SCH (11:07)
[2022-01-06] MEDS: Mirabegron [Myrbetriq] 50 MG Tab.Er.24h PO SCH (11:08)
[2022-01-06] MEDS: DICLOFENAC SOD TP SCH ×2 (11:08→20:08)
[2022-01-06] MEDS: *HR* Rivaroxaban 15 MG TABLET PO SCH (17:26)
[2022-01-06] MEDS: Morphine Sulfate ER (12 HR) 15 MG TABLET.ER PO SCH (20:08)
[2022-01-07] MEDS: Mirabegron [Myrbetriq] 50 MG Tab.Er.24h PO SCH (08:56)
[2022-01-07] MEDS: Metoprolol XL (24 HR) Succ 50 MG TAB.ER.24H PO SCH (09:02)
[2022-01-07] MEDS: Sacubitril/Valsartan 24/26 MG 1 TABLET PO SCH ×2 (09:28→20:00)
[2022-01-07] MEDS: Loratadine 10 MG TABLET PO SCH (09:29)
[2022-01-07] MEDS: Cholecalciferol (D-3) 1,000 UNIT (25MCG) TABLET PO SCH (09:29)
[2022-01-07] MEDS: Torsemide 20 MG TABLET PO SCH ×2 (09:29→16:20)
[2022-01-07] MEDS: GlipiZIDE 5 MG TABLET PO SCH ×2 (09:29→20:01)
[2022-01-07] MEDS: Aspirin Enteric Coated 81 MG Tablet PO SCH (09:29)
[2022-01-07] MEDS: Vitamin B Complex/Vit C/Vit E 1 EACH TABLET PO SCH (09:30)
[2022-01-07] MEDS: Multivit/Ca/Min/Fe/FA 1 TAB TABLET PO SCH (09:30)
[2022-01-07] MEDS: Magnesium Oxide 400 MG TABLET PO SCH ×2 (09:30→20:00)
[2022-01-07] MEDS: Spironolactone 25 MG TABLET PO SCH (09:30)
[2022-01-07] MEDS: DICLOFENAC SOD TP SCH ×2 (09:31→20:01)
[2022-01-07] MEDS: Morphine Sulfate ER (12 HR) 15 MG TABLET.ER PO SCH ×2 (12:06→20:00)
[2022-01-07] MEDS: *HR* Rivaroxaban 15 MG TABLET PO SCH (16:21)
[2022-01-08] MEDS: Aspirin Enteric Coated 81 MG Tablet PO SCH (10:54)
[2022-01-08] MEDS: Metoprolol XL (24 HR) Succ 50 MG TAB.ER.24H PO SCH (10:54)
[2022-01-08] MEDS: Cholecalciferol (D-3) 1,000 UNIT (25MCG) TABLET PO SCH (10:54)
[2022-01-08] MEDS: Morphine Sulfate ER (12 HR) 15 MG TABLET.ER PO SCH ×2 (10:55→20:34)
[2022-01-08] MEDS: Multivit/Ca/Min/Fe/FA 1 TAB TABLET PO SCH (10:55)
[2022-01-08] MEDS: GlipiZIDE 5 MG TABLET PO SCH ×2 (10:55→20:34)
[2022-01-08] MEDS: Vitamin B Complex/Vit C/Vit E 1 EACH TABLET PO SCH (10:55)
[2022-01-08] MEDS: Torsemide 20 MG TABLET PO SCH ×2 (10:55→18:21)
[2022-01-08] MEDS: Sacubitril/Valsartan 24/26 MG 1 TABLET PO SCH ×2 (10:55→20:34)
[2022-01-08] MEDS: Spironolactone 25 MG TABLET PO SCH (10:55)
[2022-01-08] MEDS: Magnesium Oxide 400 MG TABLET PO SCH ×2 (10:56→20:34)
[2022-01-08] MEDS: Loratadine 10 MG TABLET PO SCH (10:57)
[2022-01-08] MEDS: DICLOFENAC SOD TP SCH ×2 (10:57→23:30)
[2022-01-08] MEDS: Mirabegron [Myrbetriq] 50 MG Tab.Er.24h PO SCH (10:57)
[2022-01-08] MEDS: *HR* Digoxin 0.125 MG TABLET PO SCH (12:28)
[2022-01-08] MEDS: *HR* Rivaroxaban 15 MG TABLET PO SCH (16:10)
[2022-01-09] MEDS: Spironolactone 25 MG TABLET PO SCH (08:20)
[2022-01-09] MEDS: Vitamin B Complex/Vit C/Vit E 1 EACH TABLET PO SCH (08:20)
[2022-01-09] MEDS: Magnesium Oxide 400 MG TABLET PO SCH ×2 (08:20→20:35)
[2022-01-09] MEDS: Loratadine 10 MG TABLET PO SCH (08:20)
[2022-01-09] MEDS: Metoprolol XL (24 HR) Succ 50 MG TAB.ER.24H PO SCH (08:20)
[2022-01-09] MEDS: GlipiZIDE 5 MG TABLET PO SCH ×2 (08:21→20:35)
[2022-01-09] MEDS: Multivit/Ca/Min/Fe/FA 1 TAB TABLET PO SCH (08:22)
[2022-01-09] MEDS: Torsemide 20 MG TABLET PO SCH (08:22)
[2022-01-09] MEDS: Aspirin Enteric Coated 81 MG Tablet PO SCH (08:22)
[2022-01-09] MEDS: Sacubitril/Valsartan 24/26 MG 1 TABLET PO SCH ×2 (08:22→20:35)
[2022-01-09] MEDS: Morphine Sulfate ER (12 HR) 15 MG TABLET.ER PO SCH ×2 (08:22→20:36)
[2022-01-09] MEDS: Cholecalciferol (D-3) 1,000 UNIT (25MCG) TABLET PO SCH (08:22)
[2022-01-09] MEDS: Mirabegron [Myrbetriq] 50 MG Tab.Er.24h PO SCH (08:23)
[2022-01-09] MEDS: DICLOFENAC SOD TP SCH ×2 (08:23→20:36)
[2022-01-09 09:24] LABS: Basophils % 0.6 %; Eosinophils # 0.1 K/mcL (0.0-0.6); Eosinophils % 2.2 %; Hematocrit 28.3 % (35.3-44.9); Hemoglobin 8.3 g/dL (11.5-15.4); Immature Granulocytes % 0.9 % (0-4); Lymphocytes # 1.2 K/mcL (0.6-4.6); Lymphocytes % 19.3 %; Mean Corpuscular HGB Conc 29.3 g/dL (31.6-35.5); Mean Corpuscular Hemoglobin 27.3 pg (28.0-33.3); Mean Corpuscular Volume 93.1 fL (83.0-100.0); Monocytes # 0.4 K/mcL (0.0-1.3); Neutrophils # 4.5 K/mcL (1.6-8.9); Platelet Count 305 K/mcL (140-400); Red Blood Count 3.04 M/mcL (3.82-4.97); Red Cell Distribution Width 14.6 % (11.5-14.5); White Blood Count 6.3 K/mcL (4.3-11.1)
[2022-01-09] MEDS ORDERED: 0.9 % Sodium Chloride 250 ML IVC SCH (09:30)
[2022-01-09 09:47] LABS: Calcium 9.6 mg/dL (8.6-10.3); Magnesium 2.2 mg/dL (1.6-2.6); Potassium 4.2 mEq/L (3.5-5.1)
[2022-01-09] MEDS: *HR* Rivaroxaban 15 MG TABLET PO SCH (16:43)
[2022-01-09] MEDS ORDERED: Furosemide 20 MG/2 ML VIAL IVP ONE (17:00)
[2022-01-09] MEDS ORDERED: Furosemide 40 MG/4 ML VIAL IVP ONE (17:00)
[2022-01-10 07:06] VITALS: BP 98/61; PULSE 66; RESP 18; TEMP 98.4
[2022-01-10 07:17] LABS: Hematocrit 28.2 % (35.3-44.9); Hemoglobin 8.7 g/dL (11.5-15.4); Mean Corpuscular HGB Conc 30.9 g/dL (31.6-35.5); Mean Corpuscular Hemoglobin 27.8 pg (28.0-33.3); Mean Corpuscular Volume 90.1 fL (83.0-100.0); Platelet Count 283 K/mcL (140-400); Red Blood Count 3.13 M/mcL (3.82-4.97); Red Cell Distribution Width 14.6 % (11.5-14.5); White Blood Count 6.6 K/mcL (4.3-11.1)
[2022-01-10 07:57] LABS: Calcium 9.3 mg/dL (8.6-10.3); Potassium 4.4 mEq/L (3.5-5.1)
[2022-01-10] MEDS: Magnesium Oxide 400 MG TABLET PO SCH (08:07)
[2022-01-10] MEDS: Morphine Sulfate ER (12 HR) 15 MG TABLET.ER PO SCH (08:07)
[2022-01-10] MEDS: Aspirin Enteric Coated 81 MG Tablet PO SCH (08:07)
[2022-01-10] MEDS: Sacubitril/Valsartan 24/26 MG 1 TABLET PO SCH (08:07)
[2022-01-10] MEDS: GlipiZIDE 5 MG TABLET PO SCH (08:07)
[2022-01-10] MEDS: Vitamin B Complex/Vit C/Vit E 1 EACH TABLET PO SCH (08:07)
[2022-01-10] MEDS: Mirabegron [Myrbetriq] 50 MG Tab.Er.24h PO SCH (08:08)
[2022-01-10] MEDS: Torsemide 20 MG TABLET PO SCH (08:08)
[2022-01-10] MEDS: Multivit/Ca/Min/Fe/FA 1 TAB TABLET PO SCH (08:08)
[2022-01-10] MEDS: Spironolactone 25 MG TABLET PO SCH (08:08)
[2022-01-10] MEDS: Cholecalciferol (D-3) 1,000 UNIT (25MCG) TABLET PO SCH (08:08)
[2022-01-10] MEDS: Loratadine 10 MG TABLET PO SCH (08:08)
[2022-01-10] MEDS: DICLOFENAC SOD TP SCH (08:08)
[2022-01-10] MEDS: Metoprolol XL (24 HR) Succ 50 MG TAB.ER.24H PO SCH (08:18)
[2022-01-10 08:32] VITALS: O2SAT 91
[2022-01-10] MEDS: *HR* Digoxin 0.125 MG TABLET PO SCH (13:02)
== END 2022-01-10 14:20 | disposition home health service (06) | DRG 193 ==
LOC: INPPIK 15:28
PROVIDERS: ADMIT Internal Medicine; ATTEND Internal Medicine